=== PATIENT | male | born 1945 | race Caucasian/White ===

== ENCOUNTER → 2018-04-27 | Outpatient (CLI) | payer OTHER | LOC: BHFA 15:15 | PROVIDERS: ATTEND Internal Medicine Cardiovascular Disease | DX: I48.92 Unspecified atrial flutter (principal) ==

== ENCOUNTER → 2018-04-30 | Day surgery (SDC) | payer OTHER ==
[~2018-04-30] MED LIST: ATROPINE SULFATE 1 MG/10 ML SYR IVP ONE; BENZOCAINE UNIT DOSE SPRAY HURRICAINE MM ONE; MIDAZOLAM 2 MG/2 ML VIAL IVP ONE; NS 500 ML IV ONE; PROPOFOL 200 MG/20 ML VIAL ONE; fentaNYL 100 MCG/2 ML INJ IVP ONE
[2018-04-30 07:52] LABS: INR 1.18 (0.83-1.16); PROTIME(PATIENT) 15.2 SEC (12.0-15.0)
--- NOTE | 2018-04-30 08:00 | PDGENHP ---
History & Physical Chief Complaint: afl History of Present Illness: palp, Relevant Physical Exam: s1s2 irreg cta ao3 Cardiorespiratory Assessment: afl for teena cv
--- NOTE | 2018-04-30 08:26 | PDANEPAE ---
ANE History of Present Illness a. flutter STEVE Past Medical History - Cardiovascular History Hx Hypertension: No Hx Arrhythmias: Yes Hx Chest Pain: No Hx Coronary Artery / Peripheral Vascular Disease: No Hx CHF / Valvular Disease: No Hx Palpitations: No - Pulmonary History Hx COPD: No Hx Asthma/Reactive Airway Disease: No Hx Recent Upper Respiratory Infection: No Hx Oxygen in Use at Home: No Hx Sleep Apnea: No ANE Review of Systems Review of systems is: negative Review of Systems: - Exercise capacity Exercise capacity: >=4 METS ANE Patient History - Allergies Allergies/Adverse Reactions: No Known Allergies Allergy (Unverified 04/30/18 07:18) - Home Medications Home medications: home medication list seen and reviewed - Anes Hx Anes Hx: no prior problems ANE Labs/Vital Signs - Labs Result Diagrams: 04/30/18 07:30 ANE Physical Exam - Airway Neck exam: FROM Mallampati Score: Class 1 Mouth exam: normal dental/mouth exam - Pulmonary Pulmonary: no respiratory distress - Cardiovascular Cardiovascular: irregularly irregular - ASA Status ASA Status: II ANE Anesthesia Plan Anesthesia Plan: GA with mask
--- NOTE | 2018-04-30 08:27 | POSTANESTH ---
Post Anesthetic Evaluation Cardiovascular Status: Normal, Stable Respiratory Status: Normal, Stable Level of Consciousness/Mental Status: Can Participate in Eval, Alert and Oriented Pain Control: Adequate, Prn Tx Ordered Nausea/Vomiting Control: Adequate, Prn Tx Ordered Complications Possibly Related to Anesthesia: None Noted
--- NOTE | 2018-04-30 08:57 | PDTEE1 ---
RICH Cardioversion Procedure Procedure: electrical cardioversion, transesophageal echo Indications: other (atrial tachycardia/flutter) Consent: signed and in chart Anticoagulation: eliqudiane Procedural Details: Pads were placed in anterior-posterior position. RICH probe was advanced and standard images obtained. There is no evidence of left atrial or left atrial appendage thrombus. Synchronized cardioversion attempt #1: 100J Results: normal sinus rhythm Conclusions: successful RICH cardioversion Patient Problems: Problems Problem Status Onset Atrial flutter Acute
--- NOTE | 2018-04-30 16:40 | CPEKG ---
Test Reason : OPEN Blood Pressure : / mmHG Vent. Rate : 161 BPM Atrial Rate : 161 BPM P-R Int : 081 ms QRS Dur : 106 ms QT Int : 335 ms P-R-T Axes : 000 -11 -46 degrees QTc Int : 549 ms Supraventricular tachycardia Low voltage, extremity leads Nonspecific T abnormalities, inferior leads Confirmed by Korey Lo ([id number]) on 04/30/2018 4:39:38 PM Referred By: Confirmed By:Korey Lo
--- NOTE | 2018-04-30 16:41 | CPEKG ---
Test Reason : OPEN Blood Pressure : / mmHG Vent. Rate : 075 BPM Atrial Rate : 075 BPM P-R Int : 185 ms QRS Dur : 092 ms QT Int : 397 ms P-R-T Axes : 042 042 024 degrees QTc Int : 444 ms Sinus rhythm Probable left atrial enlargement Borderline ST depression, lateral leads Partial missing lead(s): V2,V3 Confirmed by Korey Lo ([id number]) on 04/30/2018 4:40:34 PM Referred By: Confirmed By:Korey Lo
== END | disposition home or self-care (01) ==
LOC: FCATH 07:13
PROVIDERS: ATTEND Internal Medicine Cardiovascular Disease
DX: I48.92 Unspecified atrial flutter (principal); I34.0 Nonrheumatic mitral (valve) insufficiency; Z79.01 Long term (current) use of anticoagulants
CPT/HCPCS: J0461; J2704

== ENCOUNTER 2018-05-07 10:31 | Day surgery (SDC) | payer OTHER ==
[2018-05-07] MEDS ORDERED: fentaNYL 100 MCG/2 ML INJ IVP ONE (10:32)
[2018-05-07] MEDS ORDERED: MIDAZOLAM 2 MG/2 ML VIAL IVP ONE (10:32)
[2018-05-07] MEDS ORDERED: NS 500 ML IV ONE (10:32)
[2018-05-07] MEDS ORDERED: ATROPINE SULFATE 1 MG/10 ML SYR IVP ONE (10:32)
[2018-05-07 10:57] LABS: INR 1.11 (0.83-1.16); PROTIME(PATIENT) 14.5 SEC (12.0-15.0)
--- NOTE | 2018-05-07 11:16 | PDGENHP ---
History & Physical Chief Complaint: AFIB Relevant Physical Exam: s1s2 irreg cta ao3 Cardiorespiratory Assessment: for CV procedure
--- NOTE | 2018-05-07 11:35 | PDANEPAE ---
ANE History of Present Illness a flutter ANE Past Medical History - Cardiovascular History Hx Hypertension: No Hx Arrhythmias: Yes Hx Chest Pain: No Hx Coronary Artery / Peripheral Vascular Disease: No Hx CHF / Valvular Disease: No Hx Palpitations: No - Pulmonary History Hx COPD: No Hx Asthma/Reactive Airway Disease: No Hx Recent Upper Respiratory Infection: No Hx Oxygen in Use at Home: No Hx Sleep Apnea: No - Neurologic History Hx Cerebrovascular Accident: No Hx Seizures: No Hx Dementia: No - Endocrine History Hx Diabetes: No Hypothyroid: No Hyperthyroid: No Obesity: no - Renal History Hx Renal Disorders: No - Liver History Hx Hepatic Disorders: No - Neurological & Psychiatric Hx Hx Neurological and Psychiatric Disorders: No - Cancer History Hx Cancer: No - Congenital Disorder History Hx Congenital Disorders: No - GI History Hx Gastrointestinal Disorders: No - Chronic Pain History Chronic Pain: No ANE Review of Systems Review of systems is: negative Review of Systems: - Exercise capacity METS (RN): 4 METS ANE Patient History - Allergies Allergies/Adverse Reactions: No Known Allergies Allergy (Unverified 04/30/18 07:18) - Home Medications Home medications: home medication list seen and reviewed Home Medications: Apixaban [Eliquis] 5 mg PO BID 05/07/18 [Last Taken 05/07/18 06:00] Atorvastatin Calcium 20 mg PO DAILY 05/07/18 [Last Taken 05/06/18 08:00] Calcium 600-Vit D3 400 Tablet 1 PO DAILY 05/07/18 [Last Taken 05/06/18 08:00] Co Q-10 100 mg Softgel 1 PO DAILY 05/07/18 [Last Taken 05/06/18 08:00] Fish Oil 1,200 mg Softgel 1 PO DAILY 05/07/18 [Last Taken 05/06/18 08:00] Flaxseed Oil 1,000 mg PO DAILY 05/07/18 [Last Taken 05/06/18 08:00] Metoprolol Tartrate 25 mg PO TID 05/07/18 [Last Taken 05/07/18 06:00] Vitamin C 500 mg (*) 500 mg PO DAILY 05/07/18 [Last Taken 05/06/18 08:00] Vitamin D3 2,000 units PO DAILY 05/07/18 [Last Taken 05/06/18 08:00] - NPO status NPO Status: no food or drink >8 hours - Anes Hx Anes Hx: no prior problems - Smoking Hx Smoking Status: Never smoked - Alcohol Use Alcohol Use: Rarely - Family Anes Hx Family Anes Hx: none ANE Labs/Vital Signs - Labs Result Diagrams: 05/07/18 10:40 - Vital Signs Height: 170 cm Weight: 65.3 kg ANE Physical Exam - Airway Neck exam: FROM Mallampati Score: Class 2 Mouth exam: normal dental/mouth exam - Pulmonary Pulmonary: no respiratory distress, clear to auscultation - Cardiovascular Cardiovascular: regular rate and rhythym, no murmur, rub, or gallop - ASA Status ASA Status: III ANE Anesthesia Plan Anesthesia Plan: GA with mask
[2018-05-07] MEDS ORDERED: PROPOFOL 200 MG/20 ML VIAL ONE (11:36)
--- NOTE | 2018-05-07 11:58 | PDCARD ---
Cardioversion Procedure Procedure: electrical cardioversion Indications: atrial fibrillation Consent: signed and in chart Anticoagulation: eliquis Procedural Details: Pads were placed in anterior-posterior position. Synchronized cardioversion attempt #1: 100J Results: normal sinus rhythm Conclusions: successful cardioversion (Discussed pros and cons of no additional Rx, sotalol, amiodarone with patient given recurrent AFIB and AFL. Would like to assess his MR and TR while in sinus rythm to assess whether it is better or not. He will be enrolled in amiodarone clinic. ) Patient Problems: Problems Problem Status Onset Atrial flutter Acute
--- NOTE | 2018-05-07 16:17 | CPEKG ---
Test Reason : OPEN Blood Pressure : / mmHG Vent. Rate : 056 BPM Atrial Rate : 056 BPM P-R Int : 185 ms QRS Dur : 090 ms QT Int : 452 ms P-R-T Axes : 016 018 -27 degrees QTc Int : 437 ms Sinus rhythm Bi-atrial enlargement present (LAE and JEAN-PAUL). ST depression lateral leads. Confirmed by Elieser Boland ([id number]) on 05/07/2018 4:16:40 PM Referred By: Confirmed By:Elieser Boland
== END 2018-05-07 13:15 | disposition home or self-care (01) ==
LOC: FCATH 10:31
PROVIDERS: ATTEND Internal Medicine Cardiovascular Disease
PROC: 5A2204Z Restoration of Cardiac Rhythm, Single (ICD-10-PCS; principal; 2018-05-07)
DX: I48.92 Unspecified atrial flutter (principal); I47.1 Supraventricular tachycardia; I34.0 Nonrheumatic mitral (valve) insufficiency
CPT/HCPCS: J0461; J2704

== ENCOUNTER → 2018-05-17 | Outpatient (CLI) | payer OTHER | LOC: BHFA 11:15 | PROVIDERS: ATTEND Internal Medicine Cardiovascular Disease | DX: I48.91 Unspecified atrial fibrillation (principal); I34.0 Nonrheumatic mitral (valve) insufficiency ==

== ENCOUNTER → 2018-06-21 | Outpatient (CLI) | payer OTHER | LOC: BHFA 10:45 | PROVIDERS: ATTEND Internal Medicine Cardiovascular Disease | DX: I34.0 Nonrheumatic mitral (valve) insufficiency (principal) ==

== ENCOUNTER → 2018-07-05 | Outpatient (CLI) | payer OTHER | LOC: FIMAGING 12:37 | PROVIDERS: ATTEND Internal Medicine Cardiovascular Disease | DX: I48.91 Unspecified atrial fibrillation (principal); Z79.899 Other long term (current) drug therapy ==

== ENCOUNTER → 2018-07-26 | Outpatient (CLI) | payer OTHER | LOC: BHLMT 08:30 | PROVIDERS: ATTEND Internal Medicine Cardiovascular Disease | DX: I48.91 Unspecified atrial fibrillation (principal) | CPT/HCPCS: 78452; 93017; A9500 ==